=== PATIENT | female | born 1955 | race Caucasian/White ===

== ENCOUNTER 2021-02-03 20:47 | Emergency (ER) | payer MEDICARE ==
--- NOTE | 2021-02-03 21:51 | EDM.PDOC ---
<Justin Zuniga - Last Filed: 02/04/21 00:38> ED HPI GENERAL MEDICAL PROBLEM - General Chief Complaint: Upper Extremity Injury/Pain Stated Complaint: L WRIST INJURY DUE TO FALL Time Seen by Provider: 02/03/21 21:50 - Related Data Allergies Allergy/AdvReac Type Severity Reaction Status Date / Time No Known Allergies Allergy Verified 02/03/21 21:33 Home Meds: Home Meds Aspirin 1 tab PO DAILY 02/03/21 [History] Escitalopram Oxalate [Lexapro] 1.5 tab PO DAILY 02/03/21 [History] Famotidine [Pepcid] 1 tab PO DAILY 02/03/21 [History] Levothyroxine 1.5 tab PO DAILY 02/03/21 [History] QUEtiapine Fumarate [Seroquel] 1 tab PO BEDTIME 02/03/21 [History] ED TRAUMA EXTREMITY PROCEDURES - Additional/Other Procedure(s) Other (Free Text) Procedure(s): Fx reduced with traction and manipulation under Propofol anesthesia. A Sugar- Tong splint was applied with 3 inch OrthoGlass and SOLEDAD wraps. Post-reduction films show improvement in alignment. A sling was applied post splinting. Departure - Departure Disposition: Home, Self-Care 01 Clinical Impression: Displaced fracture of distal end of radius, Displaced fracture of distal end of ulna, Left knee sprain - Discharge Information Instructions: Closed Reduction for Wrist or Forearm, Care After Referrals: NOMAN MARR MD [Other] Forms: ED Department Discharge Additional Instructions: You have been treated and evaluated for left closed displaced distal radius and ulnar fracture of left wrist and left knee sprain. A closed reduction with sedation was completed in the emergency room on 02/04/2021 with good reduction and splinting. Best care is for close follow up with orthopedics in 1 to 2 days to review healing, need for surgical intervention/external fixator placement. This was offered at [facility]. You have chosen to complete your orthopedic care in [place] close to home. a CD of images is provided or your fracture. Follow up in 1 to 2 days for evaluation and management to ensure proper healing of your wrist fractures. Keep splint clean and dry, wear sling at all times for support, elevate arm on a pillow to help with pain, ice, take tylenol and ibuprofen as needed for pain. For uncontrolled pain, take hydrocodone 5/325mg PO up to three times a day as needed. #9 tablets instymed provided. Wear knee brace when up to help prevent further injury. Rest, ice, elevate the left knee. Follow up with ortho for recheck in 2 weeks. Return to the emergency room as needed and for any worsening, issues or concerns. <Christy Smith - Last Filed: 02/04/21 01:08> ED HPI GENERAL MEDICAL PROBLEM - General Source of Information: Reports: Patient, RN Notes Reviewed History Limitations: Reports: No Limitations - History of Present Illness INITIAL COMMENTS - FREE TEXT/NARRATIVE: Sterling presents today for complaints of fall at 1999 today off of a deck, 2 feet onto outstretched left arm and bilateral knees. She reports pain to left wrist. She states her left knee does not hurt but she is not able to walk on it because it michael with bearing weight. She denies any other injuries, LOC, fever, chills, nausea, vomiting or other concerns. She took tylenol for her pain. Last PO intake at 1999 tonight-ice cream cake, last liquid intake at 1999. Duration: Week(s): Past Medical History Endocrine/Metabolic History: Reports: Hypothyroidism, Osteoporosis - Past Surgical History HEENT Surgical History: Reports: Eye Surgery, Tonsillectomy Endocrine Surgical History: Reports: Thyroidectomy Social & Family History - Tobacco Use Tobacco Use Status *Q: Never Tobacco User Review of Systems - Review of Systems Review Of Systems: See Below Constitutional: Reports: No Symptoms Eyes: Reports: No Symptoms Ears: Reports: No Symptoms Nose: Reports: No Symptoms Mouth/Throat: Reports: No Symptoms Respiratory: Reports: No Symptoms Cardiovascular: Reports: No Symptoms GI/Abdominal: Reports: No Symptoms Genitourinary: Reports: No Symptoms Musculoskeletal: Reports: Arm Pain (left with deformity), Other (left knee weakness and buckling with weight bearing. ) Skin: Reports: Other (abrasion bilateral knees). Denies: Cyanosis, Mottled, Pallor, Change in Color Neurological: Reports: No Symptoms Psychiatric: Reports: No Symptoms ED EXAM, GENERAL - Physical Exam Exam: See Below Exam Limited By: No Limitations General Appearance: Alert, WD/WN, No Apparent Distress Eye Exam: Bilateral Eye: Normal Inspection, PERRL Head: Atraumatic, Normocephalic Respiratory/Chest: No Respiratory Distress, Lungs Clear, Normal Breath Sounds, No Accessory Muscle Use, Chest Non-Tender. No: Crackles, Rales, Rhonchi, Wheezing, Stridor, Retractions, Splinting Cardiovascular: Normal Peripheral Pulses, Regular Rate, Rhythm, No Edema, No Gallop, No Murmur, No Rub Peripheral Pulses: 4+: Radial (L), Radial (R), Dorsalis Pedis (L), Dorsalis Pedis (R) Back Exam: Normal Inspection, Full Range of Motion. No: CVA Tenderness (R), CVA Tenderness (L) Extremities: Normal Capillary Refill, Limited Range of Motion (left wrist due to pain, deformity. Fine motor movement of fingers intact, fingers warm, capillary refill <3 seconds. No pain with ROM to left knee, small circular abrasion 1cm to patella area. CMS intact. Small circular abrasion to right knee. ) Neurological: Alert, Oriented, Normal Cognition, No Motor/Sensory Deficits Psychiatric: Normal Affect, Normal Mood Skin Exam: Warm, Dry, Normal Color, Other (abrasion) Lymphatic: No Adenopathy ED TRAUMA EXTREMITY PROCEDURES - Splinting Left Upper Extremity Pre-Procedure NV Status: Normal Post-Procedure NV Status: Normal Splint Material: Sling Applied & Form Fitted By: Provider Provider Post-Splint Application NV Check: NV Status Normal, Good Position Complications: No Left Lower Extremity Splint Site: left knee Pre-Procedure NV Status: Normal Post-Procedure NV Status: Normal Splint Material: Velcro Applied & Form Fitted By: Nurse Provider Post-Splint Application NV Check: NV Status Normal, Good Position Complications: No Course - Vital Signs Last Recorded V/S: Last Vital Signs Temp 36.3 C 02/03/21 21:43 Pulse 80 02/03/21 21:43 Resp 16 02/03/21 21:43 BP 161/77 H 02/03/21 21:43 Pulse Ox 97 02/03/21 21:43 - Orders/Labs/Meds Orders: Active Orders 24 hr Category Date Time Status Knee 3V Lt [CR] Stat Exams 02/03/21 22:00 Taken Wrist 2V Lt [CR] Stat Exams 02/04/21 00:20 Taken Wrist Comp Min 3V Lt [CR] Stat Exams 02/03/21 21:49 Taken Sodium Chloride 0.9% [Saline Flush] Med 02/03/21 23:21 Active 10 ml FLUSH ASDIRECTED PRN Saline Lock Insert [OM.PC] Routine Oth 02/03/21 23:21 Ordered Medication Orders Sodium Chloride (Sodium Chloride 0.9% 10 Ml Syringe) 10 ml FLUSH ASDIRECTED PRN PRN Reason: Keep Vein Open Meds: Medications Generic Name Dose Route Start Last Admin Trade Name Freq PRN Reason Stop Dose Admin Sodium Chloride 10 ml 02/03/21 23:21 Sodium Chloride 0.9% 10 Ml Syringe FLUSH ASDIRECTED PRN Keep Vein Open - Radiology Interpretation Free Text/Narrative:: Xrays reviewed of left wrist and left knee. Left wrist wet read, reviewed and shows medial, dorsal completely displaced radius/ulnar fracture. Left knee x-rays wet read, reviewed shows no acute findings. - Re-Assessments/Exams Free Text/Narrative Re-Assessment/Exam: 02/03/21 22:21 X-ray pending, patient resting with left wrist elevated on pillow and ice pack, pain controlled at this time. 02/03/21 23:16 Clau Mcbride Ortho floor person returned page. Images pushed for her to view. 02/04/21 23:32 Dr. Nina Suárez contacted, findings relayed on patient status, he reviewed x-rays. He advises reduction, splinting and ortho follow up in 1 to 2 days. Patient advised of recommendations, she consents to sedation and reduction of fr actures. She declines orthopedic care and follow up at [facility]. She states she will obtain care from her local orthopedic provider in [place]. She is advised to complete orthopedic followup in 1 to 2 days. Patient and her friends verbalize understanding and risks of poor healing with delayed orthopedic care. Dr. Zuniga in to complete reduction and splinting. Departure - Departure Time of Disposition: 00:57 Condition: Good - Discharge Information *PRESCRIPTION DRUG MONITORING PROGRAM REVIEWED*: Not Applicable *COPY OF PRESCRIPTION DRUG MONITORING REPORT IN PATIENT SUGAR: Not Applicable Sepsis Event Note (ED) - Evaluation Sepsis Screening Result: No Definite Risk - Focused Exam Vital Signs: Vital Signs Temp Pulse Resp BP Pulse Ox 02/03/21 21:43 36.3 C 80 16 161/77 H 97 02/03/21 21:16 36.3 C 80 16 161/77 H 97 - My Orders Last 24 Hours: My Active Orders 02/03/21 21:49 Wrist Comp Min 3V Lt [CR] Stat 02/03/21 22:00 Knee 3V Lt [CR] Stat 02/03/21 23:21 Sodium Chloride 0.9% [Saline Flush] 10 ml FLUSH ASDIRECTED PRN Saline Lock Insert [OM.PC] Routine 02/04/21 00:20 Wrist 2V Lt [CR] Stat - Assessment/Plan Last 24 Hours: My Active Orders 02/03/21 21:49 Wrist Comp Min 3V Lt [CR] Stat 02/03/21 22:00 Knee 3V Lt [CR] Stat 02/03/21 23:21 Sodium Chloride 0.9% [Saline Flush] 10 ml FLUSH ASDIRECTED PRN Saline Lock Insert [OM.PC] Routine 02/04/21 00:20 Wrist 2V Lt [CR] Stat Assessment:: Displaced fracture of distal end of radius, Displaced fracture of distal end of ulna Left knee sprain Plan: Patietn treated and evaluated for left closed displaced distal radius and ulnar fracture of left wrist and left knee sprain. A closed reduction with sedation was completed in the emergency room on 02/04/2021 with good reduction and splinting. Best care is for close follow up with orthopedics in 1 to 2 days to review healing, need for surgical intervention/external fixator placement. This was offered at [facility]. You have chosen to complete your orthopedic care in [place] close to home. a CD of images is provided or your fracture. Follow up in 1 to 2 days for evaluation and management to ensure proper healing of your wrist fractures. Keep splint clean and dry, wear sling at all times for support, elevate arm on a pillow to help with pain, ice, take tylenol and ibuprofen as needed for pain. For uncontrolled pain, take hydrocodone 5/325mg PO up to three times a day as needed. #9 tablets instymed provided. Wear knee brace when up to help prevent further injury. Rest, ice, elevate the left knee. Follow up with ortho for recheck in 2 weeks. Return to the emergency room as needed and for any worsening, issues or concerns.
[2021-02-03] MEDS ORDERED: Sodium Chloride 0.9% 10 ML Syringe FLUSH PRN (23:21)
[2021-02-04] MEDS ORDERED: Propofol 200 MG/20 ML SDV ONE (00:20)
--- NOTE | 2021-02-05 09:41 | CR ---
Wrist Comp Min 3V Lt, Knee 3V Lt CLINICAL HISTORY: Fall, deformity FINDINGS: Patient has a comminuted fracture of the distal radius with moderate dorsal lateral displacement. There is also fracture of the ulnar styloid with displacement. Impression: Comminuted displaced fracture of the distal radius and ulnar styloid Wrist Comp Min 3V Lt, Knee 3V Lt CLINICAL HISTORY: Fall FINDINGS: No acute fracture or dislocation is noted. There are no osseous lesions. The jugular surfaces are smooth Impression: No fracture seen
--- NOTE | 2021-02-05 09:43 | CR ---
Wrist 2V Lt CLINICAL HISTORY: Postreduction FINDINGS: There has been reduction of the displaced distal radial and ulnar styloid fracture.
== END 2021-02-04 01:54 | disposition home or self-care (01) ==
LOC: JP.ED 20:47
DX: S52.592A Other fractures of lower end of left radius, initial encounter for closed fracture (principal); S52.692A Other fracture of lower end of left ulna, initial encounter for closed fracture; S83.92XA Sprain of unspecified site of left knee, initial encounter; E03.9 Hypothyroidism, unspecified; Z79.82 Long term (current) use of aspirin; Z79.899 Other long term (current) drug therapy; W17.89XA Other fall from one level to another, initial encounter; Y92.009 Unspecified place in unspecified non-institutional (private) residence as the place of occurrence of the external cause
CPT/HCPCS: 25605; 73100; 73110; 73562; 99283; J2704